=== PATIENT | female | born 1975 ===

== ENCOUNTER 2017-03-09 21:59 | Emergency (ER) ==
[~2017-03-09] VITALS: Ht 162.6 cm; Wt 113.5 kg
[2017-03-09 22:05] VITALS: BP 122/83
[2017-03-09] MEDS ORDERED: AZIT500T2 PO (22:12)
[2017-03-09] MEDS ORDERED: ROBIMIS PO (22:12)
[2017-03-09] MEDS ORDERED: TYLE325T5 PO (22:12)
[2017-03-09] MEDS ORDERED: ADVI200T PO (22:12)
--- NOTE | 2017-03-10 10:52 | ECGEPIP ---
Stationary ECG Study [facility] - ED Test Date: 2017-03-09 Pat Name: AZEEM DE GUZMAN Department: Room: - Gender: F Vehicle Painter: alejandra : 1975 Requested By: CELY SAN Order Number: [id number] Reading MD: Natalee Perez Measurements Intervals [place] Rate: 105 P: 30 CO: 128 QRS: 3 QRSD: 85 T: 24 QT: 354 QTc: 469 Interpretive Statements SINUS TACHYCARDIA MINIMAL VOLTAGE CRITERIA FOR LVH, CONSIDER NORMAL VARIANT ABNORMAL RHYTHM ECG NO PRIOR FOR COMPARISON Electronically Signed On 03-10-2017 10:52:22 EST by Natalee Perez
== END 2017-03-10 00:26 | disposition left against medical advice (07) ==
LOC: M ED 21:59
DX: R07.89 Other chest pain (principal); R00.0 Tachycardia, unspecified; Z53.21 Procedure and treatment not carried out due to patient leaving prior to being seen by health care provider